=== PATIENT | male | born 1990 | race Hispanic/Latino ===

== ENCOUNTER 2022-03-26 21:38 | Emergency (ER) | payer SELFPAY ==
[2022-03-26] MEDS ORDERED: Midazolam HCl 5 mg/ml Vial ONE (22:19)
[2022-03-26] MEDS ORDERED: Ketorolac Tromethamine 30 MG/ML VIAL ONE (22:19)
[2022-03-26] MEDS ORDERED: Midazolam HCl 2 mg/2 ml Vial ONE (22:22)
[2022-03-26] MEDS ORDERED: Ondansetron PF 4 MG/2 ML Vial ONE (22:44)
[2022-03-26] MEDS ORDERED: Morphine 4 MG/ML VIAL ONE (23:32)
== END 2022-03-27 00:19 | disposition home or self-care (01) ==
LOC: ERS 21:38
DX: S83.512A Sprain of anterior cruciate ligament of left knee, initial encounter (principal); S83.412A Sprain of medial collateral ligament of left knee, initial encounter; K21.9 Gastro-esophageal reflux disease without esophagitis; Z79.899 Other long term (current) drug therapy; Y04.8XXA Assault by other bodily force, initial encounter
CPT/HCPCS: 96374; 96375; J1885; J2250; J2270; J2405